=== PATIENT | female | born 1950 | race Caucasian/White ===

== ENCOUNTER 2021-06-27 01:51 | Day surgery (SDC) | payer MEDICARE, OTHER, SELFPAY ==
[2021-05-28 15:15] VITALS: BMI 41.7
--- NOTE | 2021-06-26 12:59 | PM.HPGS ---
History of Present Illness History of Present Illness Consent: Risks, benefits, and alternatives have been discussed and questions answered. Patient agrees to proceed with procedure. Chief complaint: family hx colon ca, hx of polyps Narrative: Trena Cook is a 71 year old female whose mother had colon cancer. She herself has had polyps removed in the past Review of Systems Review of Systems: All systems reviewed & are unremarkable except as noted in HPI and below PMFSH Past Medical History Medical History Diabetes Hyperlipidemia Hypothyroidism Morbid obesity SOPHIE (obstructive sleep apnea) Social History Social History Living arrangements: with family Spiritual care concerns: No Meds Home Medications and Allergies Home Medications Medication Instructions Recorded Confirmed Type aspirin 81 mg PO DAILY 05/28/21 06/27/21 History diclofenac sodium 75 mg PO BID 05/28/21 06/27/21 History econazole 1 applic TOPICAL DAILY 05/28/21 06/27/21 History fluticasone propionate 2 spray INTRANASAL HS 05/28/21 06/27/21 History levothyroxine 75 mcg PO DAILY 05/28/21 06/27/21 History loratadine [Claritin] 10 mg PO DAILY 05/28/21 06/27/21 History metformin 1,000 mg PO DAILY 05/28/21 06/27/21 History nystatin-triamcinolone 1 applic TOPICAL DAILY 05/28/21 06/27/21 History omeprazole [Prilosec] 20 mg PO DAILY 05/28/21 06/27/21 History rosuvastatin 10 mg PO DAILY 05/28/21 06/27/21 History valsartan 40 mg PO DAILY 05/28/21 06/27/21 History Allergies Allergy/AdvReac Type Severity Reaction Status Date / Time erythromycin base Allergy Mild GI SYMPTOMS Verified 06/27/21 09:41 NALBUPHINE HCL Allergy Unknown HALUCINATIO Uncoded 06/27/21 09:41 NS Exam Resp: Auscultation: clear to auscultation bilaterally Cardio: Rate: regular rate Rhythm: regular rhythm GI: GI Palp: Yes Soft to palpation and No Tenderness to palpation present (GI) Assessment and Plan Assessment and plan (1) Colon cancer screening: Code(s): Z12.11 - Encounter for screening for malignant neoplasm of colon Status: Acute Assessment and Plan: Colonoscopy with possible biopsy or polypectomy or cautery or injection of substances.
[2021-06-27 09:41] LABS: Glucose Point of Care 145 mg/dl (65-105)
[2021-06-27 09:43] VITALS: BP 124/96; PULSE 116; RESP 18; TEMP 37.4; O2SAT 98
[2021-06-27] MEDS: LACTATED RINGERS 1,000 ML 150 ML IV CONT (09:50)
--- NOTE | 2021-06-27 09:57 | P.PNAN_ITS ---
Anes - Initial Pre Proc Eval Procedure: Operation Date: 06/27/21 10:45 Proposed Procedures p Screening Colonoscopy - Jude Rodriguez MD Date/Time: 06/27/21 09:57 Surgeon: Jude Rodriguez MD Pre Op Diagnosis: family hx colon ca, hx of polyps Patient Data Age: 71 Gender: F Height: 1.78 m Weight: 127.6 kg Last Vital Signs Temp 37.4 C 06/27/21 09:43 Pulse 116 H 06/27/21 09:43 Resp 18 06/27/21 09:43 BP 124/96 H 06/27/21 09:43 Pulse Ox 98 06/27/21 09:43 Allergies Allergy/AdvReac Type Severity Reaction Status Date / Time erythromycin base Allergy Mild GI SYMPTOMS Verified 06/27/21 09:41 NALBUPHINE HCL Allergy Unknown HALUCINATIO Uncoded 06/27/21 09:41 NS Home Medications Medication Instructions Recorded Confirmed Type aspirin 81 mg PO DAILY 05/28/21 06/27/21 History diclofenac sodium 75 mg PO BID 05/28/21 06/27/21 History econazole 1 applic TOPICAL DAILY 05/28/21 06/27/21 History fluticasone propionate 2 spray INTRANASAL HS 05/28/21 06/27/21 History levothyroxine 75 mcg PO DAILY 05/28/21 06/27/21 History loratadine [Claritin] 10 mg PO DAILY 05/28/21 06/27/21 History metformin 1,000 mg PO DAILY 05/28/21 06/27/21 History nystatin-triamcinolone 1 applic TOPICAL DAILY 05/28/21 06/27/21 History omeprazole [Prilosec] 20 mg PO DAILY 05/28/21 06/27/21 History rosuvastatin 10 mg PO DAILY 05/28/21 06/27/21 History valsartan 40 mg PO DAILY 05/28/21 06/27/21 History Laboratory Tests 06/27/21 09:37 POC Capillary Glucose 145 mg/dl H mg/dl (65-105) Patient hx anesthesia problems: none Family hx anesthesia problems: none Results Review: All pre-operative results and documents have been reviewed as part of the pre-operative evaluation. [facility] Past Medical History Medical History (Updated 06/27/21 @ 09:57 by Segundo Beckett MD) Diabetes Hyperlipidemia Hypothyroidism Morbid obesity SOPHIE (obstructive sleep apnea) Social History Social History Living arrangements: with family Spiritual care concerns: No Anes - Eval Final PreProcedure Day of Procedure 06/27/21 09:57 Patient weight: morbidly obese Heart: regular rate and rhythm Lungs: clear to auscultation Airway: Mallampati scale class III and special considerations poor opening Neurological: alert and oriented Last oral intake: >/= 8 hours ASA classification: III Emergent: no Anesthetic plan: proceed Anesthesia type and monitoring: general GIVS and standard monitoring Results Review: All pre-operative results and documents have been reviewed as part of the pre-operative evaluation. Informed Consent: The patient's anesthetic plan and its attendant risks and benefits were discussed with the patient/family/POA. Questions were solicited and answers provided to the satisfaction of the patient/family/POA.
[2021-06-27 10:49] VITALS: BP 106/61; PULSE 94; RESP 20; O2SAT 97
[2021-06-27 10:59] VITALS: BP 116/71; PULSE 86; RESP 20; O2SAT 98
[2021-06-27 11:09] VITALS: BP 122/82; PULSE 90; RESP 18; O2SAT 99
== END 2021-06-27 11:19 | disposition home or self-care (01) ==
PROVIDERS: Visit Provider Internal Medicine Gastroenterology
PROC: 0DJD8ZZ Inspection of Lower Intestinal Tract, Via Natural or Artificial Opening Endoscopic (ICD-10-PCS; CPT 45378; principal; 2021-06-27 10:45)
DX: Z12.11 Encounter for screening for malignant neoplasm of colon (principal); Z86.010 Personal history of colon polyps; Z80.0 Family history of malignant neoplasm of digestive organs; E11.9 Type 2 diabetes mellitus without complications; E78.5 Hyperlipidemia, unspecified; E03.9 Hypothyroidism, unspecified; G47.33 Obstructive sleep apnea (adult) (pediatric); K64.8 Other hemorrhoids; K57.30 Diverticulosis of large intestine without perforation or abscess without bleeding
CPT/HCPCS: G0105; 82948; J2704; J7120